=== PATIENT | male | born 1960 | race Two or more races ===

== ENCOUNTER → 2024-04-18 06:19 | Day surgery (SDC) | payer OTHER, SELFPAY | LOC: GI 06:19 | PROVIDERS: ATTENDING PHYSICIAN Internal Medicine | DX: Z12.11 Encounter for screening for malignant neoplasm of colon (principal); D12.3 Benign neoplasm of transverse colon; K64.8 Other hemorrhoids | CPT/HCPCS: 45380; 88305 ==